=== PATIENT | male | born 1970 ===

== ENCOUNTER 2017-09-07 15:16 | Emergency (ER) | payer OTHER ==
[2017-09-07 15:27] VITALS: TEMP 98.5
[2017-09-07] MEDS ORDERED: Oxycodone/Acetaminophen 5/325 mg Tab PO STA (15:31)
--- NOTE | 2017-09-07 15:35 | ED PDOC ---
Arrival/HPI - General Chief Complaint: Dental Pain Time Seen by Provider: 09/07/17 15:28 Historian: Patient - History of Present Illness Narrative History of Present Illness (Text): 09/07/17 15:32 47yo male with no pmhx who present with to ED with complaint of left lower toothache/facial swelling since yesterday. States swelling started today. Did not take any medication for the pain. States he plan to see a Dentist tomorrow, but came to ED secondary to the pain. Pedro fever, chills, nausea, any other complaint. Past Medical History - Provider Review Nursing Documentation Reviewed: Yes - Infectious Disease Hx of Infectious Diseases: None - Psychiatric Hx Substance Use: No - Anesthesia Hx Anesthesia: No Family/Social History - Physician Review Nursing Documentation Reviewed: Yes Family/Social History: Unknown Family HX Smoking Status: Current Some Days Smoker Hx Alcohol Use: Yes Frequency of alcohol use: Socially Hx Substance Use: No Allergies/Home Meds Allergies/Adverse Reactions: Allergies No Known Allergies Allergy (Verified 09/07/17 15:27) Review of Systems - Physician Review All systems were reviewed & negative as marked: Yes - Review of Systems Constitutional: Normal Eyes: Normal ENT: Other (toothache) Respiratory: Normal Cardiovascular: Normal Gastrointestinal: Normal Genitourinary Male: Normal Musculoskeletal: Normal Skin: Normal Neurological: Normal Endocrine: Normal Hemo/Lymphatic: Normal Psychiatric: Normal Physical Exam Vital Signs Reviewed: Yes Vital Signs Temp Pulse Resp BP Pulse Ox 09/07/17 15:24 98.5 F 59 L 20 127/85 98 Temperature: Afebrile Blood Pressure: Normal Pulse: Regular Respiratory Rate: Normal Appearance: Positive for: Well-Appearing, Non-Toxic, Comfortable Pain Distress: None Mental Status: Positive for: Alert and Oriented X 3 - Systems Exam Head: Present: Atraumatic, Normocephalic Pupils: Present: PERRL Extroacular Muscles: Present: EOMI Conjunctiva: Present: Normal Mouth: Present: Moist Mucous Membranes. No: Normal Teeth (Left sided lower 2nd molar noted with mild surrounding gingiva and overlaying jaw swelling) Neck: Present: Normal Range of Motion Respiratory/Chest: Present: Clear to Auscultation, Good Air Exchange. No: Respiratory Distress, Accessory Muscle Use Cardiovascular: Present: Regular Rate and Rhythm, Normal S1, S2. No: Murmurs Abdomen: No: Tenderness, Distention, Peritoneal Signs Back: Present: Normal Inspection Upper Extremity: Present: Normal Inspection. No: Cyanosis, Edema Lower Extremity: Present: Normal Inspection. No: Edema Neurological: Present: GCS=15, CN II-XII Intact, Speech Normal Skin: Present: Warm, Dry, Normal Color. No: Rashes Psychiatric: Present: Alert, Oriented x 3, Normal Insight, Normal Concentration Disposition/Present on Arrival - Present on Arrival Any Indicators Present on Arrival: No History of DVT/PE: No History of Uncontrolled Diabetes: No Urinary Catheter: No History of Decub. Ulcer: No History Surgical Site Infection Following: None - Disposition Have Diagnosis and Disposition been Completed?: Yes Diagnosis: Dental abscess Disposition: HOME/ ROUTINE Disposition Time: 15:35 Patient Plan: Discharge Condition: STABLE Discharge Instructions (ExitCare): Dental Pain (DC), Tooth Abscess (DC) Additional Instructions: Follow up with a Dentist Return to ED for any new or worsening symptoms Prescriptions: Amoxicillin [Amoxil 500 mg Cap] 500 mg PO TID #21 cap Ibuprofen [Motrin Tab] 600 mg PO Q6 #15 tab oxyCODONE/Acetaminophen [Percocet 5/325 mg Tab] 1 ea PO Q6 #5 tab Referrals: [facility] [place] [facility] [place] - Follow up with primary Forms: [facility] (Kyr[place]z), WORK NOTE
[2017-09-07 16:05] VITALS: BP 118/76; PULSE 78; RESP 18; O2SAT 99
== END 2017-09-07 16:04 | disposition home or self-care (01) ==
LOC: ED 15:16
DX: K04.7 Periapical abscess without sinus (principal)
CPT/HCPCS: 96372; 99283; J1885